=== PATIENT | female | born 1950 | race Caucasian/White ===

== ENCOUNTER → 2017-05-06 | Outpatient (CLI) | payer MEDICARE, OTHER ==
[2015-03-10 20:03] VITALS: BP 172/85
[~2017-05-06] MED LIST: ACET1TAB33 PO; CYCL-331 PO; FEXO180T81 PO; IBUP800T19 PO; IRBE150T PO; OLOP5DRO EACHEYE; SIMV40TA PO; TIMO5DRO26 OP
--- NOTE | 2017-05-06 12:11 | RAD ---
DATE: 05/06/2017 EXAM: MAMMO ERMELINDA SCREENING BILATERAL HISTORY: Screening COMPARISON: Digitized film screening examination from 07/06/2014 This study was interpreted with the benefit of Computerized Aided Detection (CAD). FINDINGS: Breast Density: FATTY The Breast Parenchyma is primarily fatty replaced. Breast parenchyma level density A.. A significant change relative to the previous exam is not seen. A dominant soft tissue mass or suspect calcifications is not seen. IMPRESSION: Benign findings BI-RADS CATEGORY: 2 BENIGN FINDING(S) RECOMMENDED FOLLOW-UP: 12M 12 MONTH FOLLOW-UP PQRS compliance statement: Patient information was entered into a reminder system with a target due date 05/06/2018 for the next mammogram. Mammography is a sensitive method for finding small breast cancers, but it does not detect them all and is not a substitute for careful clinical examination. A negative mammogram does not negate a clinically suspicious finding and should not result in delay in biopsying a clinically suspicious abnormality. "Our facility is accredited by the [employer] Mammography Program."
== END | disposition home or self-care (01) ==
LOC: MAMMO 11:18
PROVIDERS: ATTEND Internal Medicine
DX: Z12.31 Encounter for screening mammogram for malignant neoplasm of breast (principal)
CPT/HCPCS: 77063; G0202; 77067

== ENCOUNTER → 2018-05-20 | Outpatient (CLI) | payer MEDICARE, OTHER ==
[2015-03-10 20:03] VITALS: BP 172/85
--- NOTE | 2018-05-20 13:18 | RAD ---
DATE: 05/20/2018 EXAM: MAMMO ERMELINDA SCREENING BILATERAL HISTORY: Routine screening COMPARISON: 05/06/2017 This study was interpreted with the benefit of Computerized Aided Detection (CAD). The breast parenchyma shows scattered fibroglandular densities. Breast parenchyma level B. FINDINGS: 2-D and 3-D tomosynthesis imaging was performed in CC and MLO projections. Residual fibroglandular densities in both breasts are multinodular in character. No enlarging breast density, spiculated mass or architectural distortion is seen. Scattered benign type calcifications are present. No suspicious microcalcifications have developed. IMPRESSION: Stable mammograms without evidence of malignancy. BI-RADS CATEGORY: 2 BENIGN FINDING(S) RECOMMENDED FOLLOW-UP: 12M 12 MONTH FOLLOW-UP PQRS compliance statement: Patient information was entered into a reminder system with a target due date for the next mammogram. Mammography is a sensitive method for finding small breast cancers, but it does not detect them all and is not a substitute for careful clinical examination. A negative mammogram does not negate a clinically suspicious finding and should not result in delay in biopsying a clinically suspicious abnormality. "Our facility is accredited by the [employer] Mammography [employer]."
== END | disposition home or self-care (01) ==
LOC: MAMMO 10:59
PROVIDERS: ATTEND Internal Medicine
DX: Z12.31 Encounter for screening mammogram for malignant neoplasm of breast (principal)
CPT/HCPCS: 77063; 77067

== ENCOUNTER → 2019-06-01 | Outpatient (CLI) | payer MEDICARE, OTHER ==
[2015-03-10 20:03] VITALS: BP 172/85
--- NOTE | 2019-06-01 17:25 | RAD ---
DATE: 06/01/2019 EXAM: MAMMO ERMELINDA SCREENING BILATERAL HISTORY: Routine screening COMPARISON: 07/06/2014, 05/06/2017, 05/20/2018 mammographic exams This study was interpreted with the benefit of Computerized Aided Detection (CAD). Breast Density: SCATTERED The breast parenchyma shows scattered fibroglandular densities. Breast parenchyma level B. FINDINGS: No mass or distortion. No suspicious calcifications. IMPRESSION: No change. BI-RADS CATEGORY: 1 NEGATIVE RECOMMENDED FOLLOW-UP: 12M 12 MONTH FOLLOW-UP PQRS compliance statement: Patient information was entered into a reminder system with a target due date in one year for the next mammogram. Mammography is a sensitive method for finding small breast cancers, but it does not detect them all and is not a substitute for careful clinical examination. A negative mammogram does not negate a clinically suspicious finding and should not result in delay in biopsying a clinically suspicious abnormality. "Our facility is accredited by the [employer] Mammography Program."
== END | disposition home or self-care (01) ==
LOC: MAMMO 14:18
PROVIDERS: ATTEND Internal Medicine
DX: Z12.31 Encounter for screening mammogram for malignant neoplasm of breast (principal)
CPT/HCPCS: 77063; 77067

== ENCOUNTER → 2020-06-02 | Outpatient (CLI) | payer MEDICARE, OTHER ==
[2015-03-10 20:03] VITALS: BP 172/85
--- NOTE | 2020-06-02 15:14 | RAD ---
BILATERAL SCREENING MAMMOGRAM, 3-D History: Routine screening. Comparison: 06/01/2019, 05/20/2018, 05/06/2017, 07/06/2014, 03/12/2013 Technique: MLO and CC digital tomosynthesis (3D) images obtained. Radiologist reviewed these images on dedicated workstation. Findings: Breast Tissue Density B : There are scattered areas of fibroglandular density. A small asymmetry involves the right outer breast approximately 8 cm from the nipple. It appears to involve the lower breast tomographic images. Asymmetries at the far posterior right upper MLO image are somewhat more evident compared to recent prior exams. Similar appearance is noted upon comparison with older prior exams. This probably represents summation of breast parenchyma. Multiple small masses bilaterally are seen involving the outer breast and these have remained stable. No suspicious calcifications or distortion. IMPRESSION: Spot compression of right breast asymmetry in the outer aspect and asymmetries at the posterior upper aspect is recommended. Ultrasound of the right breast may be needed. BI-RADS Category 0: Incomplete: Need additional imaging evaluation. The images were reviewed with computer-aided detection. Patient information is entered into reminder system with a target due date for the next screening mammogram. Mammography is the most sensitive method for finding small breast cancers, but it does not detect them all and is not a substitute for careful clinical examination. A negative mammogram does not negate a clinically suspicious finding and should not result in delay in biopsying a clinically suspicious abnormality. "Our facility is accredited by the [employer] Mammography Program." Electronically signed by: Serjio Love MD (06/02/2020 3:11 PM) [email or web address]
== END | disposition home or self-care (01) ==
LOC: MAMMO 11:19
PROVIDERS: ATTEND Internal Medicine
DX: Z12.31 Encounter for screening mammogram for malignant neoplasm of breast (principal)
CPT/HCPCS: 77063; 77067

== ENCOUNTER → 2020-06-15 | Outpatient (CLI) | payer MEDICARE, OTHER ==
[2015-03-10 20:03] VITALS: BP 172/85
--- NOTE | 2020-06-15 15:28 | RAD ---
Examination: DIGITAL DIAGNOSTIC RT History: Reason: ABNORMAL MAMMOGRAM / Spl. Instructions: / History: Comparison/Correlation: 06/01/2019, 05/03/2020, 05/20/2018, 05/06/2017, 07/06/2014 Findings: Breast Tissue Density B : There are scattered areas of fibroglandular density. There is no suspicious finding a spot compression of the posterior right upper MLO region. Asymmetry at the right outer breast on the CC projection is less evident on spot compression imaging. IMPRESSION: Asymmetry is less evident on spot compression the right outer breast. Assessment for stability in 6 months is recommended by mammography. Ultrasound may be needed at that time. BI-RADS category 3: Probably benign. The images were reviewed with computer aided detection. Patient information is entered into the reminder system with a target due date for the next screening mammogram. Mammography is the most sensitive method for finding small breast cancers, but it does not detect them all and is not a substitute for careful clinical examination. A negative mammogram does not negate a clinically suspicious finding and should not result in delay in biopsying a clinically suspicious abnormality. "Our facility is accredited by the [employer] Mammography Program Electronically signed by: Serjio Love MD (06/15/2020 3:25 PM) [email or web address]
== END ==
LOC: MAMMO 13:39
PROVIDERS: ATTEND Internal Medicine
DX: R92.8 Other abnormal and inconclusive findings on diagnostic imaging of breast (principal)
CPT/HCPCS: 77065

== ENCOUNTER → 2020-12-29 | Outpatient (CLI) | payer MEDICARE, OTHER ==
[2015-03-10 20:03] VITALS: BP 172/85
--- NOTE | 2020-12-29 14:50 | RAD ---
EXAMINATION: MG DIGITAL UNILAT DIAGNOSTIC MAMMO WITH ERMELINDA CLINICAL HISTORY: Follow-up right outer breast asymmetry TECHNIQUE: Digital craniocaudal and mediolateral oblique views of the bilateral breasts obtained with 3-D tomosynthesis. COMPARISON: 06/15/2020, 06/02/2020, 06/01/2019 BREAST COMPOSITION: There are scattered areas of fibroglandular density. FINDINGS: Scattered asymmetries in the right lateral breast middle to posterior third appear essentially unchan ged. No evidence of new suspicious mass, calcifications, or areas architectural distortion. IMPRESSION: Essentially unchanged asymmetries right lateral breast. BI-RADS ASSESSMENT: Category 3: Probably Benign RECOMMENDATION: Recommend follow-up bilateral mammogram in 6 months to count for annual screening on the left. PQRS compliance statement - Patient information was entered into a reminder system with a target due date for the next mammogram. "Our facility is accredited by the [employer] Mammography [employer]." Electronically signed by: Toy West DO (12/29/2020 2:48 PM) [email or web address]
== END ==
LOC: MAMMO 12:33
PROVIDERS: ATTEND Internal Medicine
DX: R92.8 Other abnormal and inconclusive findings on diagnostic imaging of breast (principal)
CPT/HCPCS: 77065; G0279; 77061

== ENCOUNTER → 2021-06-07 | Outpatient (CLI) | payer MEDICARE, OTHER ==
[2015-03-10 20:03] VITALS: BP 172/85
--- NOTE | 2021-06-07 15:27 | RAD ---
MG DIGITAL BILAT DIAGNOSTIC MAMMO WITH ERMELINDA 06/07/2021 2:00 PM INDICATION: Right breast asymmetry. COMPARISON: 12/29/2020, 06/15/2020, 06/02/2020, 06/01/2019 TECHNIQUE: 3D tomosynthesis was performed in CC and MLO projections. 2D views were obtained from the 3D data. CAD was utilized as needed. FINDINGS: Breast density: Category B: There are scattered areas of fibroglandular density. Right breast: There are no suspicious microcalcifications, masses or areas of architectural distortio n. Left breast: There are no suspicious microcalcifications, masses or areas of architectural distortion . Bilateral mammogram is compared to prior examinations appears unchanged. IMPRESSION: Negative bilateral mammogram. BI-RADS category: 1; Negative Recommendations: Recommend annual screening mammography in one year. Electronically signed by: Ashley Kate MD (06/07/2021 3:24 PM) [email or web address]
== END ==
LOC: MAMMO 13:46
PROVIDERS: ATTEND Internal Medicine
DX: R92.8 Other abnormal and inconclusive findings on diagnostic imaging of breast (principal)
CPT/HCPCS: 77066; G0279; 77062

== ENCOUNTER → 2022-04-26 | Day surgery (SDC) | payer MEDICARE, OTHER ==
[~2022-04-26] MED LIST changes: -ACET1TAB33 PO; +ACET1TAB56 PO; +ACETAMINOPHEN 500 MG TABLET PO PRN; +ALBUTEROL SULFATE 2.5 MG/3 ML NEBU. NEB PRN; +BALANCED SALT IRRIG SOLN NO.2 500 ML IO ONE; +BENZONATATE 100 MG CAPSULE. PO PRN; +BRIMONIDINE 0.2% OPHTH SOLUTION 5ML BOTTLE. OD ONE; +CEFUROXIME OPHTH 4 MG/0.4 ML SYRINGE. OD ONE; +CELE200C PO; +CHONDROIT-SOD-HYALURONATE KIT. OD ONE; -CYCL-331 PO; +CYCL10TA19 PO; +DICL50TA4 PO; +ELUX100T PO; +ESTR1TAB15 PO; +FLUT9.9S NS; +GABA600T7 PO; +IBUPROFEN 200 MG TABLET PO PRN; +IV RINGERS SOLUTION,LACTATED 1,000 ML IV SCH; +LIDO/EPI IN BSS OPHTH 2.7 ML SYRINGE. OD ONE; +LIDOCAINE 2% JELLY 6ML IN APPLICATOR. ONE; +LOSA50TA3 PO; +MIDAZOLAM HCL PF 2 MG/2 ML VIAL. IV PRN; +MIDAZOLAM HCL PF 2 MG/2 ML VIAL. ONE; +MISO200T PO; +ONDANSETRON PF 4 MG/2 ML VIAL. IV PRN; +PHENYLEPHRINE 10% OPHTH SOLUTION 5ML BOTTLE. OD PRN; +POVIDONE-IODINE 5% OPHTH SOLUTION 30ML BOTTLE. OD ONE; +POVIDONE-IODINE 5% OPHTH SOLUTION 30ML BOTTLE. OD PRN; +PROPARACAINE 0.5% OPHTH SOLUTION 15ML BOTTLE. OD ONE; +PROPARACAINE 0.5% OPHTH SOLUTION 15ML BOTTLE. OD PRN; +prednisoLONE ACETATE 1% OPHTH SUSPENSION 5ML BOTTLE. OD ONE
[2022-04-26] MEDS: TROPICAMIDE 1% OPHTH SOLUTION 15ML BOTTLE. OD SCH ×3 (10:28→10:39)
[2022-04-26] MEDS: KETOROLAC TROMETHAMINE 0.5% OPHTH SOLUTION BOTTLE. OD SCH ×2 (10:28→10:32)
[2022-04-26] MEDS: PHENYLEPHRINE 2.5% OPHTH SOLUTION 2ML BOTTLE. OD SCH ×3 (10:28→10:39)
[2022-04-26] MEDS: TOBRAMYCIN 0.3% OPHTH SOLUTION 5ML BOTTLE. OD SCH ×2 (10:28→10:32)
--- NOTE | 2022-04-26 12:08 | PDOC4 ---
Cataract i-Stent Injection Surgeon: Flex Dorman MD Date of Procedure: 04/26/22 Preop Diagnosis: Visually significant cataract: Right Eye OD Primary open angle glaucoma: Right eye Postop Diagnosis: Postop Diagnosis: Same Anesthesia: x Deep forniceal periocular 2% Lidocaine jelly Chandni/retro bulbar block with 2% Lidocaine with 0.5% Marcaine Description of Procedure: The risks, benefits, and alternatives were discussed with the patient who elected to proceed. Informed consent was obtained in writing and placed in the chart After anesthetizing the eye topically, the patient was taken to the operating room, and the operative eye was prepped and draped in the usual sterile fashion for ocular surgery. A wire lid speculum was placed. A 1-mm clear corneal paracentesis incision was created with the sideport blade at a position three clock hours clockwise from the temporal cornea. Then 1% non-preserved Lidocaine with epinephrine was injected into the anterior chamber followed by viscoelastic. Cotton-tipped applicators were used to stabilize the globe, and a 2.4 mm keratome was used to create a self-sealing incision in the clear cornea at the temporal limbus. At this point, the head of the patient was titled away from the surgeon and the microscope was angled nasally to facilitate visualization of the nasal angle structures. Viscoelastic was placed on the corneas and a gonioprism was used to create a 4 clock-hour goniotomy nasally with the kahook dual blade. The Utrata forceps were used to create a continuous curvilinear capsulorrhexis. Balanced saline solution was injected via cannula beneath the capsulorrhexis edge to hydrodissect the lens nucleus and cortex from the lens capsule. The phacoemulsification handpiece and a chopping instrument were then used to remove the lens nucleus. The remaining epinuclear material and cortex were removed with the irrigation/aspiration handpiece. Viscoelastic was used to re-inflate the lens capsule, and the intraocular lens was injected directly into the capsular bag. The corneal wound edges were hydrated with balanced salt solution on a cannula and the irrigation/aspiration handpiece was used to extract the remaining viscoelastic. Cefuroxime 0.1mg/ml/Vigamox 0.5% was injected into the anterior chamber intracamerally. The wounds were inspected and found to be watertight at an appropriate interocular pressure. The lid speculum and drapes were carefully removed. The patient was taken to the recovery area in good condition. Co-managed patients/postop examination stable for co-management with referring Doctor. Incision [place]: Incision [place]: 180 LRI: LRI: No Patch/Shield with Max/Tob/Eryt Patch/shield with Maxitrol/Tobradex/Erythromycin ointment: Yes No EBL: EBL: None Specimens Collected: Specimens Collected: None FLEX DORMAN MD April 26, 2022 12:08
[2022-04-26 12:13] VITALS: BP 146/82
== END | disposition home or self-care (01) ==
LOC: SURG 09:53
PROVIDERS: ATTEND Ophthalmology
DX: H25.11 Age-related nuclear cataract, right eye (principal); H40.1110 Primary open-angle glaucoma, right eye, stage unspecified; I10 Essential (primary) hypertension; E78.00 Pure hypercholesterolemia, unspecified; G47.30 Sleep apnea, unspecified; E66.01 Morbid (severe) obesity due to excess calories; Z79.899 Other long term (current) drug therapy; Z98.890 Other specified postprocedural states
CPT/HCPCS: 65820; 66984; J2250; V2632